=== PATIENT | male | born 1990 | race Caucasian/White ===

== ENCOUNTER 2017-09-25 16:49 | Emergency (ER) | payer MEDICAID ==
[~2017-09-25] VITALS: Ht 160 cm; Wt 82.3 kg
[2017-09-25 18:50] VITALS: BP 138/89
== END 2017-09-25 19:15 | disposition home or self-care (01) ==
LOC: EMS 16:53
DX: M54.9 Dorsalgia, unspecified (principal); M79.661 Pain in right lower leg; M79.662 Pain in left lower leg; F17.210 Nicotine dependence, cigarettes, uncomplicated; Z88.0 Allergy status to penicillin
CPT/HCPCS: 99281; 99406

== ENCOUNTER 2017-10-05 12:54 | Emergency (ER) | payer MEDICAID ==
[~2017-10-05] VITALS: Ht 160 cm; Wt 81.8 kg
[2017-10-05 14:20] VITALS: BP 141/79
== END 2017-10-05 14:41 | disposition home or self-care (01) ==
LOC: EMS 12:56
DX: M54.5 Low back pain (principal); R03.0 Elevated blood-pressure reading, without diagnosis of hypertension; F17.200 Nicotine dependence, unspecified, uncomplicated; Z02.89 Encounter for other administrative examinations; Z88.0 Allergy status to penicillin
CPT/HCPCS: 99282

== ENCOUNTER 2018-05-26 20:44 | Emergency (ER) | payer MEDICAID ==
[~2018-05-26] VITALS: Ht 160 cm; Wt 80.9 kg
[2018-05-26 21:56] VITALS: BP 144/81
== END 2018-05-26 22:33 | disposition home or self-care (01) ==
LOC: EMS 20:45
DX: J40 Bronchitis, not specified as acute or chronic (principal); F17.210 Nicotine dependence, cigarettes, uncomplicated; Z88.0 Allergy status to penicillin
CPT/HCPCS: 99406

== ENCOUNTER 2018-09-17 13:14 | Emergency (ER) | payer MEDICAID ==
[~2018-09-17] VITALS: Ht 160 cm; Wt 68.2 kg
[2018-09-17] MEDS ORDERED: CLOTRIMAZOLE 1% 15 GM CREAM TP ONE (16:30)
[2018-09-17 17:34] VITALS: BP 121/81
== END 2018-09-17 17:55 | disposition home or self-care (01) ==
LOC: EMS 13:14
DX: B37.9 Candidiasis, unspecified (principal)